=== PATIENT | female | born 1975 | race Caucasian/White ===

== ENCOUNTER 2018-07-03 06:57 | Emergency (ER) | payer SELFPAY ==
[2018-07-03] MEDS ORDERED: Albuterol/Ipratropium 3.0-0.5 MG/3 ML Neb Soln NEB ONE (07:22)
--- NOTE | 2018-07-03 09:48 | EDM.PDOC ---
ED HPI GENERAL MEDICAL PROBLEM - General Chief Complaint: General Stated Complaint: DIZZY YESTERDAY AND BACK PAIN Time Seen by Provider: 07/03/18 07:13 Source of Information: Reports: Patient History Limitations: Reports: No Limitations - History of Present Illness INITIAL COMMENTS - FREE TEXT/NARRATIVE: The patient presents with a cough, back pain and neurologic symptoms. She said she has had a cough for a few days. She cough a few times in a row yesterday and after that she noticed a heavy feeling in her right arm with tingling and tingling in her right tongue. Her right leg was not affected. This only lasted about 2 minutes. She now has some pain in her back. She is worried because her mother had a stroke after a coughing fit. She is also worried about an [place]. She has no chest pain or shortness of breath. She has no neurologic symptoms now. She has no fever, chills, ear pain or sore throat. She does smoke about a half a pack per day. She has asthma. Onset: Sudden Duration: Day(s): (yesterday) Location: Reports: Back Quality: Reports: Sharp Severity: Moderate Improves with: Reports: None Worsens with: Reports: None Associated Symptoms: Reports: Cough. Denies: Chest Pain, Fever/Chills, Headaches, Nausea/Vomiting, Shortness of Breath Bilateral Back Pain Score (Numeric/FACES): 6 - Related Data Allergies Allergy/AdvReac Type Severity Reaction Status Date / Time aspirin Allergy Other Verified 07/03/18 07:10 codeine Allergy Other Verified 07/03/18 07:10 seasonal Allergy Shortness Uncoded 07/03/18 07:18 of Breath Home Meds: Home Meds Albuterol [Proventil HFA] 2 puff INH Q4H PRN 07/03/18 [History] Fluticasone/Salmeterol [Advair 250-50 Diskus] 1 puff IH BID 07/03/18 [History] Past Medical History HEENT History: Reports: Allergic Rhinitis Respiratory History: Reports: Asthma, Bronchitis, Recurrent Gastrointestinal History: Reports: Other (See Below) Other Gastrointestinal History: stomach ulcer Psychiatric History: Reports: Anxiety, Bipolar, Depression - Past Surgical History GI Surgical History: Reports: Appendectomy, Cholecystectomy Female Surgical History: Reports: Tubal Ligation Musculoskeletal Surgical History: Reports: Carpal Tunnel Social & Family History - Tobacco Use Smoking Status *Q: Current Every Day Smoker Years of Tobacco use: 29 Packs/Tins Daily: 0.5 Used Tobacco, but Quit: No - Caffeine Use Caffeine Use: Reports: Coffee, Soda - Recreational Drug Use Recreational Drug Use: Yes Drug Use in Last 12 Months: Yes Recreational Drug Type: Reports: Marijuana/Hashish Recreational Drug Use Frequency: Monthly ED ROS GENERAL - Review of Systems Review Of Systems: See Below Constitutional: Reports: No Symptoms HEENT: Reports: No Symptoms Respiratory: Reports: Cough. Denies: Shortness of Breath Cardiovascular: Reports: No Symptoms Endocrine: Reports: No Symptoms GI/Abdominal: Reports: No Symptoms : Reports: No Symptoms Musculoskeletal: Reports: Back Pain ED EXAM, GENERAL - Physical Exam Exam: See Below Exam Limited By: No Limitations General Appearance: Alert, No Apparent Distress Ears: Normal External Exam Nose: Normal Inspection Head: Atraumatic, Normocephalic Neck: Normal Inspection Respiratory/Chest: No Respiratory Distress, Wheezing (Mild) Cardiovascular: Regular Rate, Rhythm, No Edema, No Murmur GI/Abdominal: Soft, Non-Tender, No Organomegaly, No Mass Back Exam: Normal Inspection Extremities: Normal Inspection EKG INTERPRETATION EKG Date: 07/03/18 Time: 07:35 Rhythm: Other (sinus tachycardia) Rate (Beats/Min): 103 Merlin: Normal P-Wave: Present QRS: Normal ST-T: Normal QT: Normal Course - Vital Signs Last Recorded V/S: Last Vital Signs Temp 97.6 F 07/03/18 07:14 Pulse 100 07/03/18 07:14 Resp 19 07/03/18 07:14 BP 147/92 H 07/03/18 07:14 Pulse Ox 97 07/03/18 07:42 - Orders/Labs/Meds Orders: Active Orders 24 hr Category Date Time Status Cardiac Monitoring [RC] . DIRECTED Care 07/03/18 07:20 Active EKG Documentation Completion [RC] ASDIRECTED Care 07/03/18 07:24 Active RT Aerosol Therapy [RC] ASDIRECTED Care 07/03/18 07:22 Active Chest 2V [CR] Stat Exams 07/03/18 07:21 Taken Head wo Cont [CT] Stat Exams 07/03/18 07:21 Ordered EKG 12 Lead [EK] Stat Ther 07/03/18 07:23 Ordered Labs: Laboratory Tests 07/03/18 07/03/18 Range/Units 07:30 07:30 WBC 8.54 (3.98-10.04) K/mm3 RBC 4.67 (3.98-5.22) M/mm3 Hgb 15.3 (11.2-15.7) gm/L Hct 44.6 (34.1-44.9) % MCV 95.5 H (79.4-94.8) fl MCH 32.8 H (25.6-32.2) pg MCHC 34.3 (32.2-35.5) g/dl RDW Std Deviation 46.6 H (36.4-46.3) fL Plt Count 271 (182-369) K/mm3 MPV 10.0 (9.4-12.3) fl Neut % (Auto) 56.0 (34.0-71.1) % Lymph % (Auto) 30.2 (19.3-51.7) % [place] % (Auto) 10.0 (4.7-12.5) % Eos % (Auto) 3.0 (0.7-5.8) Baso % (Auto) 0.6 (0.1-1.2) % Neut # (Auto) 4.78 (1.56-6.13) K/mm3 Lymph # (Auto) 2.58 (1.18-3.74) K/mm3 [place] # (Auto) 0.85 H (0.24-0.36) K/mm3 Eos # (Auto) 0.26 (0.04-0.36) K/mm3 Baso # (Auto) 0.05 (0.01-0.08) K/mm3 Sodium 138 (136-145) mEq/L Potassium 4.2 (3.5-5.1) mEq/L Chloride 105 (98-107) mEq/L Carbon Dioxide 24 (21-32) mEq/L Anion Gap 13.2 (5-15) BUN 17 (7-18) mg/dL Creatinine 0.7 (0.55-1.02) mg/dL Est Cr Clr Drug Dosing 85.72 mL/min Estimated GFR (MDRD) > 60 (>60) mL/min BUN/Creatinine Ratio 24.3 H (14-18) Glucose 105 (74-106) mg/dL Calcium 9.4 (8.5-10.1) mg/dL Total Bilirubin 0.3 (0.2-1.0) mg/dL AST 21 (15-37) U/L ALT 34 (14-59) U/L Alkaline Phosphatase 65 (46-116) U/L Troponin I < 0.017 (0.00-0.056) ng/mL Total Protein 7.3 (6.4-8.2) g/dl Albumin 3.9 (3.4-5.0) g/dl Globulin 3.4 gm/dL Albumin/Globulin Ratio 1.2 (1-2) Meds: Medications Discontinued Medications Generic Name Dose Route Start Last Admin Trade Name Freq PRN Reason Stop Dose Admin Albuterol/Ipratropium 3 ml 07/03/18 07:22 07/03/18 07:40 Duoneb 3.0-0.5 Mg/3 Ml NEB 07/03/18 07:23 3 ml ONETIME ONE Administration - Re-Assessments/Exams Free Text/Narrative Re-Assessment/Exam: 07/03/18 09:58 I ordered an EKG, CT of her head, labs, duo neb and a CXR. Her EKG shows a sinus tachycardia with no acute changes. Her CBC and CMP look good. Her troponin is negative. The CT of her head shows a 5mm low attenuation area in the right lentiform nucleus. It is nonspecific. This may represent normal perivascular space, vasculitis, demyelinating disease, lacunar infarction or unknown age. Recommend MRI for further evaluation if clinically indicated. No acute intracranial hemorrhage. 07/03/18 10:09 She will need an MRI of her brain. She is going back to [place]. I will give her a copy of the CT and then she will follow up. She has a viral URI. I will give her an inhaler from here. Departure - Departure Time of Disposition: 10:15 Disposition: Home, Self-Care 01 Condition: Good Clinical Impression: Viral URI, Tingling Asthma Qualifiers: Asthma severity: mild Asthma persistence: intermittent Asthma complication type : unspecified Qualified Code(s): J45.20 - Mild intermittent asthma, uncomplicated Thoracic back pain Qualifiers: Chronicity: acute Back pain laterality: unspecified Qualified Code(s): M54.6 - Pain in thoracic spine - Discharge Information *PRESCRIPTION DRUG MONITORING PROGRAM REVIEWED*: Not Applicable *COPY OF PRESCRIPTION DRUG MONITORING REPORT IN PATIENT BRYANNA: Not Applicable Referrals: PCP,None [Primary Care Provider] - Forms: ED Department Discharge Additional Instructions: Use the inhaler as needed. Follow up with your doctor back home. There was a small 5mm nonspecific area seen on CT that needs to be evaluated more with an MRI. Use the inhaler 2 puffs every 6 hours as needed for shortness of breath and wheezing. Please return if you are worse. - My Orders Last 24 Hours: My Active Orders 07/03/18 07:20 Cardiac Monitoring [RC] . DIRECTED 07/03/18 07:21 Chest 2V [CR] Stat Head wo Cont [CT] Stat 07/03/18 07:22 RT Aerosol Therapy [RC] ASDIRECTED 07/03/18 07:23 EKG 12 Lead [EK] Stat 07/03/18 07:24 EKG Documentation Completion [RC] ASDIRECTED - Assessment/Plan Last 24 Hours: My Active Orders 07/03/18 07:20 Cardiac Monitoring [RC] . DIRECTED 07/03/18 07:21 Chest 2V [CR] Stat Head wo Cont [CT] Stat 07/03/18 07:22 RT Aerosol Therapy [RC] ASDIRECTED 07/03/18 07:23 EKG 12 Lead [EK] Stat 07/03/18 07:24 EKG Documentation Completion [RC] ASDIRECTED
[2018-07-03] MEDS ORDERED: Albuterol 6.7 GM Inhaler INH ONE (10:10)
--- NOTE | 2018-07-04 06:27 | CT ---
Head CT Technique: Multiple axial sections through the brain were obtained. Intravenous contrast was not utilized. Comparison: No prior intracranial imaging is available. Findings: Small low density finding is noted within the right basal ganglia most likely due to slightly prominent perivascular space. No other abnormal parenchymal densities are seen. No evidence of intracranial hemorrhage. No midline shift or mass effect is seen. Bone window settings were reviewed which show no acute calvarial abnormality. Minimal areas of mucosal thickening are seen within the ethmoid sinuses which are felt to be incidental. Impression: 1. Small low density finding within the right basal ganglia most likely representing an incidental prominent perivascular space. 2. Incidental sinus findings. 3. Noncontrast head CT study is otherwise unremarkable. Nothing acute is appreciated. Diagnostic code #2 I agree with preliminary report from [facility], finalized on 07/03/18, 9:17 AM Central Time
--- NOTE | 2018-07-04 06:28 | CR ---
Chest: Two views of the chest were obtained. Comparison: No previous chest x-ray is available. Heart size and mediastinum are normal. Lungs are clear. Bony structures are unremarkable for the patient's age. Impression: 1. Nothing acute is seen on two-view chest x-ray. Diagnostic code #1
== END 2018-07-03 10:20 | disposition home or self-care (01) ==
LOC: JD.ED 06:57
DX: J45.20 Mild intermittent asthma, uncomplicated (principal); R20.2 Paresthesia of skin; J06.9 Acute upper respiratory infection, unspecified; F17.210 Nicotine dependence, cigarettes, uncomplicated; M54.6 Pain in thoracic spine; Z79.899 Other long term (current) drug therapy; Z88.8 Allergy status to other drugs, medicaments and biological substances
CPT/HCPCS: 36415; 70450; 71046; 80053; 84484; 85025; 93005; 94640; 99284; A9270; 93010; J7620-GY